=== PATIENT | female | born 1960 | race Caucasian/White ===

== ENCOUNTER 2017-07-03 09:28 | Emergency (ER) | payer OTHER ==
[~2017-07-03] VITALS: Ht 154.9 cm; Wt 56.7 kg
[2017-07-03 09:29] VITALS: BP 160/100
--- NOTE | 2017-07-03 09:40 | NUR ---
56f bib self with productive cough with "brown-yandel" phelgm, fevers, bodyaches, and nausea; Pt sts taking OTC medication with relief but symptoms ongoing. Pt denies any v/d, sob, or chills. Pt is aox4, rr are even and unlabored. Pt positioned to comfort, bed down. Awaiting er md primary eval. Will continue to monitor.
--- NOTE | 2017-07-03 09:45 | NUR ---
er md khan by bedside examining pt
[2017-07-03 10:43] VITALS: BP 179/90
--- NOTE | 2017-07-03 10:43 | NUR ---
Patient discharged with v/s stable. Written and verbal after care instructions given and explained. Patient alert, oriented and verbalized understanding of instructions. Ambulatory with steady gait. All questions addressed prior to discharge. ID band removed. Patient advised to follow up with PMD. Rx of Dextromethorphan Hydrobromide/Promethazine Hydrochloride given. Patient educated on indication of medication including possible reaction and side effects. Opportunity to ask questions provided and answered.
== END 2017-07-03 10:43 | disposition home or self-care (01) ==
LOC: MED 09:28
DX: B34.9 Viral infection, unspecified (principal); I10 Essential (primary) hypertension; E03.9 Hypothyroidism, unspecified; Z88.5 Allergy status to narcotic agent
CPT/HCPCS: 71045; 99283; Q0092

== ENCOUNTER 2019-11-10 20:29 | Inpatient (IN) | payer MEDICAID, OTHER ==
[~2019-11-10] VITALS: Ht 154.9 cm; Wt 56.2 kg
[2019-11-10 20:34] VITALS: BP 163/88
--- NOTE | 2019-11-10 20:42 | NUR ---
PT AMBULATORY TO BED 1
[2019-11-10] MEDS ORDERED: MORPHINE SULFATE 4 MG/ML SYR IVP ONE ×2 (20:50→22:10)
[2019-11-10] MEDS ORDERED: ONDANSETRON 4 MG/2 ML VIAL IVP ONE (20:50)
[2019-11-10 20:59] LABS: APPEARANCE,URINE CLEAR (CLEAR); BILIRUBIN,URINE NEGATIVE (NEGATIVE); BLOOD, URINE NEGATIVE (NEGATIVE); COLOR,URINE YELLOW (YELLOW); LEUKOCYTE ESTERASE ,URINE NEGATIVE (NEGATIVE); NITRITE, URINE NEGATIVE (NEGATIVE); UGLUCOSE NEGATIVE (NEGATIVE)
--- NOTE | 2019-11-10 21:05 | NUR ---
59F PRESENTS TO ED WITH C/O LOWER ABD PAIN X1 DAY, PT REPORTS DRY HEAVING, LAST BM: YESTERDAY AFTER SUPPOSITORY. PT REPORTS BOWEL TO BE HARD AND SMALL SOLID PEBBLE LIKE. BOWELS SOUNDS HYPOACTIVE ON ALL QUADRANTS. NO HEMATOCHEZIA SUBJECTLY STATED PER PT. REPORTS FEELING OF NAUSEA AND VOMITING BUT NO EPISODES PMH: HTN, HYPER THYROID ALLERGIES: CODEINE
--- NOTE | 2019-11-10 21:17 | NUR ---
LABS DRAWN AND COLLECTED AND SENT TO LAB.
--- NOTE | 2019-11-10 21:23 | NUR ---
PT MEDICATED WITH MORPHINE AND ZOFRAN IVP. TOLERATED WELL. RUBENR
[2019-11-10 21:31] LABS: BASOPHILS % (AUTO) 0.6 % (0.0-2.0); EOSINOPHILS % (AUTO) 0.6 % (0.0-4.0); HEMATOCRIT 36.8 % (36-48); HEMOGLOBIN 12.9 g/dL (12.0-16.0); LYMPHOCYTES # (AUTO) 2.6 K/uL (2.5-16.5); LYMPHOCYTES % (AUTO) 29.1 % (20.5-51.1); MEAN CORPUSCULAR HEMOGLOBIN 32 pg (27-31); MEAN CORPUSCULAR HGB CONC 35 g/dL (33-37); MEAN CORPUSCULAR VOLUME 90.5 fL (80-94); MONOCYTES # (AUTO) 0.5 K/uL (0.8-1.0); MONOCYTES % (AUTO) 5.5 % (1.7-9.3); NEUTROPHILS # (AUTO) 5.8 K/uL (1.8-7.7); NEUTROPHILS % (AUTO) 64.2 % (42.2-75.2); PLATELET COUNT (AUTO) 321 K/uL (140-450); RED BLOOD CELL COUNT(AUTO) 4.07 MIL/uL (4.20-5.40); RED CELL DISTRIBUTION WIDTH 12.4 % (11.6-13.7)
[2019-11-10 22:20] LABS: ALBUMIN 4.8 g/dL (3.4-5.0); ANION GAP 14.4 (8-16); CARBON DIOXIDE 25.2 mmol/L (21-32); CREATININE 0.8 mg/dL (0.6-1.3); POTASSIUM 3.6 mmol/L (3.5-5.1); TOTAL BILIRUBIN 0.9 mg/dL (0.0-1.0)
--- NOTE | 2019-11-10 22:24 | NUR ---
PT STATES NON RESOLVING PAIN 03/05. MEDICATED WITH MORPHINE IVP PER MD ORDER. TOLERATED WELL. NADR.
[2019-11-10] MEDS ORDERED: NACL 0.9% 1,000 ML IV ONE (22:40)
[2019-11-10] MEDS ORDERED: LEVO100P IV (23:03)
[2019-11-10] MEDS ORDERED: AMLO5TAB PO (23:03)
[2019-11-10] MEDS ORDERED: MULT1TAB99 PO (23:03)
[2019-11-10] MEDS ORDERED: ASPI81TA3 PO (23:03)
[2019-11-10] MEDS ORDERED: NITR0.4T2 SL (23:03)
[2019-11-10] MEDS ORDERED: LISI-420 PO (23:03)
[2019-11-10] MEDS ORDERED: ASCO500T45 PO (23:03)
[2019-11-10] MEDS ORDERED: OMEP20TC12 PO (23:03)
[2019-11-10] MEDS ORDERED: ATOR20TA PO (23:03)
--- NOTE | 2019-11-10 23:03 | NUR ---
PT TO BE ADMITTED PER MD ORDER. PT NOTIFIED.
[2019-11-10] MEDS ORDERED: DEXT 5% /NACL 0.9% 1,000 ML IV SCH (23:29)
[2019-11-10] MEDS ORDERED: DOCUSATE SODIUM 100 MG GELCAP PO PRN (23:30)
[2019-11-10] MEDS ORDERED: HYDROcodone/APAP 5/325 MG 1 TAB TAB PO PRN (23:30)
[2019-11-10] MEDS ORDERED: BISACODYL 10 MG SUPP RC PRN (23:30)
[2019-11-10] MEDS ORDERED: KETOROLAC 15 MG/ML VIAL IVP PRN (23:30)
[2019-11-10] MEDS ORDERED: ACETAMINOPHEN 325 MG TAB PO PRN (23:30)
[2019-11-11] MEDS ORDERED: SYN.05 PO (00:01)
[2019-11-11 00:10] VITALS: BP 138/77
[2019-11-11 00:10] LABS: AMYLASE 52 U/L (25-115); MAGNESIUM 1.8 mg/dL (1.8-2.4); PHOSPHORUS 3.4 mg/dL (2.5-4.9); THYROID STIMULATING HORMONE 6.62 uIU/mL (0.34-3.74)
[2019-11-11] MEDS ORDERED: BISACODYL 10 MG SUPP RC SCH (00:10)
--- NOTE | 2019-11-11 00:10 | NUR ---
Patient will be admitted to care of DR TIPTON. Admited to [facility]. Will go to [id number]. Belongings list completed. Report to XIAO RESTREPO.
--- NOTE | 2019-11-11 00:10 | NUR ---
PATIENT ARRIVED FROM ER VIA GURNEY, ABLE TO AMBULATE TO [facility] BED WITH ASSISTANCE. NO DISTRESS NOTED. DENIES ANY PAIN. PATIENT COMPLAINS OF NAUSEA/VOMITING, ZOFRAN GIVEN AT ER. AAXO4, CALM, COOPERATIVE, SKIN COLOR APPROPRIATE TO ETHNICITY, WARM TO TOUCH. SKIN INTACT. IV SITE INTACT, PATENT, AND ON SALINE LOCK. ABDOMEN SOFT, NON-DISTENDED. ORIENTED PATIENT TO ROOM AND CALL LIGHT. REVIEWED PLAN OF CARE WITH PATIENT. PATIENT VERBALIZED UNDERSTANDING. SAFETY MEASURES IN PLACE, CALL LIGHT WITHIN REACH. WILL CONTINUE TO MONITOR.
[2019-11-11 00:19] LABS: PROTHROMBIN TIME 10.1 secs (10.8-13.4)
[2019-11-11 00:28] LABS: BARBITURATE, URINE NEGATIVE ng/ml (NEG <=200); BENZODIAZEPINE, URINE NEGATIVE ng/mL (NEG <=200); CANNABINOID, URINE NEGATIVE ng/mL (NEG <=50); COCAINE, URINE NEGATIVE ng/mL (NEG <=300); OPIATE, URINE NEGATIVE ng/mL (NEG <=2000); PHENCYCLIDINE SCREEN,URINE NEGATIVE ng/mL (NEG <=25)
[2019-11-11] MEDS: POTASSIUM CHL 20 MEQ/NACL 0.9% 1,000 ML IV SCH ×3 (00:46→20:25)
[2019-11-11 00:48] LABS: LACTATE DEHYDROGENASE 264 U/L (81-234)
--- NOTE | 2019-11-11 01:00 | NUR ---
MD ORDERED SUPPOSITORY AND ENEMA FOR PATIENT'S CONSTIPATION. PER PATIENT, SHE WANTS TO GO TO SLEEP AND WANTS THE SUPPOSITORY AND ENEMA TO BE DONE IN THE MORNING. WILL CONTINUE TO MONITOR.
[2019-11-11] MEDS: ONDANSETRON 4 MG/2 ML VIAL IM/IVP PRN ×4 (01:20→17:04)
--- NOTE | 2019-11-11 01:30 | NUR ---
PATIENT COMPLAINS OF NAUSEA/VOMITING, ZOFRAN GIVEN AT THIS TIME. WILL CONTINUE TO MONITOR.
--- NOTE | 2019-11-11 03:00 | NUR ---
PATIENT LYING DOWN IN BED SLEEPING, AROUSABLE BY VOICE. CONDITION UNCHANGED. WILL CONTINUE TO MONITOR.
--- NOTE | 2019-11-11 05:30 | NUR ---
PATIENT LYING DOWN IN BED SLEEPING, AROUSABLE BY VOICE. CONDITION UNCHANGED. WILL CONTINUE TO MONITOR.
[2019-11-11] MEDS: LEVOTHYROXINE 0.05 MG TAB PO SCH (05:40)
--- NOTE | 2019-11-11 05:51 | NUR ---
PATIENT SITTING IN BED WITH COMPLAINTS OF NAUSEA. ZOFRAN GIVEN AND OTHER SCHEDULED MEDICATIONS DUE AT THIS TIME. WILL CONTINUE TO MONITOR.
[2019-11-11 06:42] LABS: BASOPHILS # (AUTO) 0.1 K/uL (0.00-0.22); BASOPHILS % (AUTO) 0.5 % (0.0-2.0); HEMATOCRIT 33.5 % (36-48); HEMOGLOBIN 11.6 g/dL (12.0-16.0); LYMPHOCYTES # (AUTO) 1.5 K/uL (2.5-16.5); LYMPHOCYTES % (AUTO) 10.7 % (20.5-51.1); MEAN CORPUSCULAR HEMOGLOBIN 32 pg (27-31); MEAN CORPUSCULAR HGB CONC 35 g/dL (33-37); MEAN CORPUSCULAR VOLUME 91.6 fL (80-94); MONOCYTES # (AUTO) 0.6 K/uL (0.8-1.0); MONOCYTES % (AUTO) 4.2 % (1.7-9.3); NEUTROPHILS # (AUTO) 11.9 K/uL (1.8-7.7); NEUTROPHILS % (AUTO) 84.6 % (42.2-75.2); PLATELET COUNT (AUTO) 285 K/uL (140-450); RED BLOOD CELL COUNT(AUTO) 3.65 MIL/uL (4.20-5.40); RED CELL DISTRIBUTION WIDTH 12.2 % (11.6-13.7); WHITE BLOOD COUNT (AUTO) 14.1 K/uL (4.8-10.8)
[2019-11-11 06:56] LABS: ANION GAP 12.4 (8-16); CARBON DIOXIDE 25.5 mmol/L (21-32); CREATININE 0.6 mg/dL (0.6-1.3); POTASSIUM 3.9 mmol/L (3.5-5.1)
[2019-11-11 07:05] LABS: CHOL/HDL RATIO 1.5 (1-4.5)
--- NOTE | 2019-11-11 07:19 | NUR ---
GAVE REPORT TO AM SHIFT NURSE FOR CONTINUITY OF CARE. PATIENT IN STABLE CONDITION.
--- NOTE | 2019-11-11 07:20 | NUR ---
RECEIVED REPORT FROM HANDBAG STITCHER NURSE, FOR CONTINUITY OF CARE. PT IS LYING IN BED SUPINE, AA&OX4. RESPIRATIONS EVEN AND UNLABORED, BREATHING TO RA. SKIN INTACT, SKIN COLOR APPROPRIATE FOR ETHNICITY. LAC 18G IV PATENT AND INTACT. REVIEWED PLAN OF CARE WITH PT. SAFETY MEASURES IN PLACE; CALL LIGHT WITHIN REACH, BED IN LOW POSITION. WILL CONTINUE TO MONITOR.
[2019-11-11 07:49] LABS: MAGNESIUM 1.7 mg/dL (1.8-2.4); PHOSPHORUS 3.1 mg/dL (2.5-4.9)
[2019-11-11 08:00] VITALS: BP 146/68
[2019-11-11] MEDS: ATORVASTATIN 20 MG TAB PO SCH (09:05)
[2019-11-11] MEDS: LISINOPRIL 20 MG TAB PO SCH (09:05)
[2019-11-11] MEDS: ECOTRIN 81 MG TABEC PO SCH (09:07)
[2019-11-11] MEDS: PANTOPRAZOLE 40 MG TABEC PO SCH (09:07)
[2019-11-11] MEDS: amLODIPine 5 MG TAB PO SCH (09:08)
--- NOTE | 2019-11-11 09:11 | NUR ---
PT COMPLAINS OF NAUSEA AND CONSTIPATION. PRN IVP ZOFRAN, STOOL SOFTENER AND SUPPOSITORY GIVEN. PT'S SCHEDULED MEDS ALSO GIVEN; MEDICATION EDUCATION PROVIDED. BP: 146/68, PULSE: 74. PT TOLERATED PO MEDS WELL. NO ACUTE DISTRESS NOTED. WILL CONTINUE TO MONITOR.
--- NOTE | 2019-11-11 09:41 | NUR ---
PATIENT HAS BEEN SCREENED AND CATEGORIZED HIGH NUTRITION RISK. PATIENT WILL BE SEEN WITHIN 1-2 DAYS OF ADMISSION. 11/11/19-11/12/[address]
--- NOTE | 2019-11-11 10:20 | NUR ---
HOUSEHOLD CHORES NOTE: Basic Screen: Yes High Risk DC Screen [place]: KIM SMILEY Nunda Relationship: Pre-Admission Living Arrangements: Lives with Other Prior ADL Independent Current Home Health Name/Tel: N/A Current DME/02 Name/Tel: N/A Current Hospice Name/Tel: N/A Current Dialysis Name/Tel: N/A Healthcare Decision Maker: Patient Advance Directive No Physician Orders for Life Sustaining Treatment Form No Discipline: Case Mgt/Social Svcs Tentative Discharge Plan/Destination: No Needs Identified Will require assistance post discharge: No Referred to Senior Embedded Software Engineer: No Tentative Discharge Plan Summary: PATIENT IS A 59-YEAR-OLD FEMALE ADMITTED FOR HYPONATREMIA. PATIENT HAS PMHX OF HYPERTENSION, HYPOTHYROIDISM, AND DYSLIPEMIA. PATIENT WAS ADMITTED FROM HOME WHERE SHE LIVES WITH HER . SW SPOKE WITH PATIENT TO VERIFY DEMOGRAPHICS. PER PATIENT, SHE IS INDEPENDENT WITH ALL ADLS, AND REPORTS NO HISTORY OF MENTAL HEALTH OR SUBSTANCE ABUSE. TENTATIVE DISCHARGE PLAN IS FOR PATIENT TO RETURN HOME. NO FURTHER NEEDS IDENTIFIED. Signature: RADHA MALDONADO Date: November 11, 2019 Time: 10:19
[2019-11-11 13:36] LABS: ANION GAP 14.4 (8-16); CARBON DIOXIDE 24.5 mmol/L (21-32); CREATININE 0.9 mg/dL (0.6-1.3); POTASSIUM 3.9 mmol/L (3.5-5.1)
[2019-11-11 16:00] VITALS: BP 145/76
[2019-11-11] MEDS ORDERED: MAGNESIUM OXIDE 400 MG TAB PO SCH (17:00)
--- NOTE | 2019-11-11 17:11 | NUR ---
PT COMPLAINS OF NAUSEA, PRN IVP ZOFRAN GIVEN. PO MAGNESIUM ALSO ADMINISTERED. WARM BLANKET AND WARM WATER ALSO GIVEN. NO ACUTE DISTRESS NOTED. WILL CONTINUE TO MONITOR.
--- NOTE | 2019-11-11 19:14 | NUR ---
GAVE BEDSIDE REPORT TO DRY CLEANER NURSE FOR CONTINUITY OF CARE. PT IS IN STABLE CONDITION.
--- NOTE | 2019-11-11 19:15 | NUR ---
RECEIVED REPORT FROM DAY SHIFT NURSE. PATIENT AWAKE, LYING ON BED, ALERT, ORIENTED X 4. ON ROOM AIR. RESPIRATIONS EVEN AND UNLABORED. SKIN INTACT. WITH IV SITE PATENT AND INTACT WITH IVF. PATIENT IS AMBULATORY. NO PAIN/DISTRESS NOTED. REVIEWED PLAN OF CARE TO PATIENT. VERBALIZED UNDERSTANDING. SAFETY MEASURES IN PLACE. CALL LIGHT WITHIN REACH. WILL CONTINUE TO MONITOR PATIENT.
--- NOTE | 2019-11-11 23:41 | NUR ---
PATIENT IS SLEEPING COMFORTABLY. ON ROOM AIR. RESPIRATIONS EVEN AND UNLABORED. WILL CONTINUE TO MONITOR PATIENT.
[2019-11-12] VITALS: BP 112/53
[2019-11-12] MEDS: POTASSIUM CHL 20 MEQ/NACL 0.9% 1,000 ML IV SCH ×3 (01:12→22:20)
--- NOTE | 2019-11-12 01:21 | NUR ---
PATIENT STILL SLEEPING COMFORTABLY. ON ROOM AIR. RESPIRATIONS EVEN AND UNLABORED. WILL CONTINUE TO MONITOR PATIENT.
--- NOTE | 2019-11-12 03:34 | NUR ---
CHECKED PATIENT AND IS SLEEPING COMFORTABLY. ON ROOM AIR, RESPIRATIONS EVEN AND UNLABORED. WILL CONTINUE TO MONITOR PATIENT.
--- NOTE | 2019-11-12 05:14 | NUR ---
PATIENT STILL SLEEPING COMFORTABLY. PATIENT NOT IN DISTRESS. RESPIRATIONS EVEN AND UNLABORED. WILL CONTINUE TO MONITOR PATIENT.
[2019-11-12] MEDS: LEVOTHYROXINE 0.05 MG TAB PO SCH (05:54)
--- NOTE | 2019-11-12 05:56 | NUR ---
PATIENT NOW AWAKE. PATIENT STILL CONSTIPATED. PT ASKING FOR SUPPOSITORY. DULCOLAX GIVEN PER MD ORDER. WILL CONTINUE TO MONITOR PATIENT.
[2019-11-12 06:45] LABS: BASOPHILS % (AUTO) 0.8 % (0.0-2.0); EOSINOPHILS # (AUTO) 0.1 K/uL (0-0.4); EOSINOPHILS % (AUTO) 1.3 % (0.0-4.0); HEMATOCRIT 34.7 % (36-48); LYMPHOCYTES # (AUTO) 1.6 K/uL (2.5-16.5); LYMPHOCYTES % (AUTO) 27.3 % (20.5-51.1); MEAN CORPUSCULAR HEMOGLOBIN 32 pg (27-31); MEAN CORPUSCULAR HGB CONC 35 g/dL (33-37); MEAN CORPUSCULAR VOLUME 91.9 fL (80-94); MONOCYTES # (AUTO) 0.4 K/uL (0.8-1.0); MONOCYTES % (AUTO) 7.2 % (1.7-9.3); NEUTROPHILS # (AUTO) 3.7 K/uL (1.8-7.7); NEUTROPHILS % (AUTO) 63.4 % (42.2-75.2); PLATELET COUNT (AUTO) 286 K/uL (140-450); RED BLOOD CELL COUNT(AUTO) 3.77 MIL/uL (4.20-5.40); RED CELL DISTRIBUTION WIDTH 12.3 % (11.6-13.7); WHITE BLOOD COUNT (AUTO) 5.8 K/uL (4.8-10.8)
--- NOTE | 2019-11-12 07:00 | NUR ---
RECEIVED REPORT FROM WHEEL FITTER RNLAMBERT. PATIENT AWAKE, ABLE TO AMBULATE. ALERT, ORIENTED X 4. ON ROOM AIR. RESPIRATIONS EVEN AND UNLABORED. SKIN INTACT. WITH IV SITE PATENT AND INTACT WITH IVF. NO PAIN/DISTRESS NOTED. REVIEWED PLAN OF CARE TO PATIENT. VERBALIZED UNDERSTANDING. SAFETY MEASURES IN PLACE. CALL LIGHT WITHIN REACH. WILL CONTINUE TO MONITOR PATIENT.
--- NOTE | 2019-11-12 07:18 | NUR ---
PATIENT IN STABLE CONDITION. ENDORSED PATIENT TO DAY SHIFT NURSE FOR CONTINUITY OF CARE.
[2019-11-12 08:00] VITALS: BP 148/88
--- NOTE | 2019-11-12 08:00 | NUR ---
COLLECTED OCCULT BLOOD, BM CONTAINS SMALL AMOUNT OF STOOL AND IS HARD. NO SIGNS OF DISTRESS. WILL CONTINUE TO MONITOR.
[2019-11-12] MEDS: ECOTRIN 81 MG TABEC PO SCH (08:19)
--- NOTE | 2019-11-12 08:20 | NUR ---
MORNING MEDICATIONS GIVEN. NO SIGNS OF DISTRESS NOTED. BP 147/89, HR 82. WILL CONTINUE TO MONITOR.
[2019-11-12] MEDS: PANTOPRAZOLE 40 MG TABEC PO SCH (08:25)
[2019-11-12] MEDS: ATORVASTATIN 20 MG TAB PO SCH (08:25)
[2019-11-12] MEDS: amLODIPine 5 MG TAB PO SCH ×2 (08:25→09:20)
[2019-11-12] MEDS: LISINOPRIL 20 MG TAB PO SCH (08:26)
--- NOTE | 2019-11-12 09:30 | NUR ---
IVF CHANGED. NO SIGNS OF DISTRESS NOTED. PT. IS ASLEEP AND IN BED. WILL CONTINUE TO MONITOR.
--- NOTE | 2019-11-12 10:15 | NUR ---
DC PLANNIN YRS OLD FEMALE PATIENT WAS ADMITTED FROM HOME WITH A DX OF HYPONATREMIA, INTRACTABLE ABDOMINAL PAIN. PT HAS A HX OF HTN, HYPOTHYROIDISM AND DYSLIPIDEMIA. CT ABD/PELVIS SHOWED MODERATED VOLUME OF STOOL AND GAS THROUGH OUT THE COLON . ADMINISTER IV ZOFRAN , CONTINUE HOME MEDS CONSULT WITH ROTARY FILTER OPERATOR DR ELENA. DC PLAN TO GO HOME WHEN STABLE . CM TO FOLLOW.
[2019-11-12 10:29] LABS: ANION GAP 11.4 (8-16); CARBON DIOXIDE 24.1 mmol/L (21-32); CREATININE 0.8 mg/dL (0.6-1.3); POTASSIUM 4.5 mmol/L (3.5-5.1)
--- NOTE | 2019-11-12 15:52 | NUR ---
11/12/19 RD INITIAL ASSESSMENT COMPLETED PLEASE REFER TO NUTRITION ASSESSMENT UNDER CARE ACTIVITY FOR ESTIMATED NUTRITIONAL NEEDS. 1. RECOMMEND [facility] [address] GM DIET TOL[address]ATED 2. RD PROVIDED NUTRITION EDUCATION FOR DIABETES 3. RD TO FOLLOW-UP 3-5 DAYS, MODERATE RISK MARYLIN REARDON RD
[2019-11-12 16:00] VITALS: BP 120/80
--- NOTE | 2019-11-12 16:15 | NUR ---
V/S TAKEN AND IS WNL. PT. IS AWAKE AND IN BED. NO SIGNS OF DISTRESS NOTED. WILL CONTINUE TO MONITOR.
--- NOTE | 2019-11-12 19:00 | NUR ---
ENDORSED TO RN HEDIS RNJAMAR, FOR CONTINUITY OF CARE.
--- NOTE | 2019-11-12 19:01 | NUR ---
RECD. RESTING IN BED, AWAKE, A/OX4. RESPIRATION EVEN AND UNLABORED. IV OF D5 NS +20 MEQ KCL INFUSING AT 100 ML/HR, LEFT AC G18. AMBULATORY TO THE BR. PLAN OF CARE FOR THE SHIFT DISCUSSED.VERBALIZED UNDERSTANDING. DENIES PAIN 0/10.
--- NOTE | 2019-11-12 19:02 | NUR ---
Patient's Plan of Care was discussed and reviewed with OPERATING ROOM TECHNICIAN: JAMAR. WILL ROUND FREQUENTLY.
--- NOTE | 2019-11-12 21:00 | NUR ---
RESTING IN BED, WATCHING TV. NO COMPLAINT OF ABDOMINAL PAIN 0/10.
[2019-11-13] VITALS: BP 133/82
[2019-11-13] MEDS ORDERED: CALCIUM CARBONATE 500 MG TAB.CHEW PO PRN (02:30)
--- NOTE | 2019-11-13 02:45 | NUR ---
WITH HYPERACIDITY, MEDICATED WITH TUMS PER MD ORDER.
--- NOTE | 2019-11-13 03:45 | NUR ---
AWAKE IN BED, STATED FEELING BETTER.
[2019-11-13 06:31] LABS: ANION GAP 9.9 (8-16); CARBON DIOXIDE 29.4 mmol/L (21-32); CREATININE 0.7 mg/dL (0.6-1.3); POTASSIUM 4.3 mmol/L (3.5-5.1)
[2019-11-13] MEDS: LEVOTHYROXINE 0.05 MG TAB PO SCH (06:35)
[2019-11-13 06:56] LABS: BASOPHILS # (AUTO) 0.1 K/uL (0.00-0.22); BASOPHILS % (AUTO) 0.6 % (0.0-2.0); EOSINOPHILS # (AUTO) 0.1 K/uL (0-0.4); EOSINOPHILS % (AUTO) 1.6 % (0.0-4.0); HEMATOCRIT 34.9 % (36-48); HEMOGLOBIN 12.1 g/dL (12.0-16.0); LYMPHOCYTES # (AUTO) 2.3 K/uL (2.5-16.5); LYMPHOCYTES % (AUTO) 27.9 % (20.5-51.1); MEAN CORPUSCULAR HEMOGLOBIN 32 pg (27-31); MEAN CORPUSCULAR HGB CONC 35 g/dL (33-37); MEAN CORPUSCULAR VOLUME 92.8 fL (80-94); MONOCYTES # (AUTO) 0.4 K/uL (0.8-1.0); NEUTROPHILS # (AUTO) 5.4 K/uL (1.8-7.7); NEUTROPHILS % (AUTO) 64.9 % (42.2-75.2); PLATELET COUNT (AUTO) 289 K/uL (140-450); RED BLOOD CELL COUNT(AUTO) 3.77 MIL/uL (4.20-5.40); RED CELL DISTRIBUTION WIDTH 12.5 % (11.6-13.7); WHITE BLOOD COUNT (AUTO) 8.3 K/uL (4.8-10.8)
--- NOTE | 2019-11-13 07:00 | NUR ---
RECEIVED REPORT FROM RES HABILITATION ASSISTANT RNJAMAR, FOR CONTINUITY OF CARE. PATIENT AWAKE, ABLE TO AMBULATE. ALERT, ORIENTED X 4. ON ROOM AIR. RESPIRATIONS EVEN AND UNLABORED. SKIN INTACT. WITH IV SITE PATENT AND INTACT WITH IVF. NO PAIN/DISTRESS NOTED. REVIEWED PLAN OF CARE TO PATIENT. VERBALIZED UNDERSTANDING. SAFETY MEASURES IN PLACE. CALL LIGHT WITHIN REACH. WILL CONTINUE TO MONITOR PATIENT.
--- NOTE | 2019-11-13 07:10 | NUR ---
CONDITION REMAIN STABLE. ENDORSED TO AM SHIFT NURSE FOR CONTINUITY OF CARE.
[2019-11-13 08:00] VITALS: BP 160/93
[2019-11-13] MEDS: PANTOPRAZOLE 40 MG TABEC PO SCH (08:30)
[2019-11-13] MEDS: LISINOPRIL 20 MG TAB PO SCH (08:31)
[2019-11-13] MEDS: ATORVASTATIN 20 MG TAB PO SCH (08:31)
[2019-11-13] MEDS: ECOTRIN 81 MG TABEC PO SCH (08:31)
[2019-11-13] MEDS: amLODIPine 5 MG TAB PO SCH (08:32)
[2019-11-13] MEDS: POTASSIUM CHL 20 MEQ/NACL 0.9% 1,000 ML IV SCH (08:37)
[2019-11-13] MEDS ORDERED: AMLO10TA PO (10:43)
[2019-11-13] MEDS ORDERED: LISI-420 PO (10:43)
[2019-11-13] MEDS ORDERED: DOCU-299 PO (10:43)
[2019-11-13] MEDS ORDERED: LORazepam 2 MG/ML VIAL IM/IVP PRN (11:40)
[2019-11-13] MEDS ORDERED: hydrALAZINE 20 MG/ML VIAL IM SCH (12:00)
[2019-11-13] MEDS ORDERED: hydrALAZINE 20 MG/ML VIAL IVP SCH (12:00)
--- NOTE | 2019-11-13 12:00 | NUR ---
V/S CHECKED FOR DISCHARGE. BP 174/104, HR 101, TEMP 98.6, O2 STAT 99%, PT VERBALIZES NO PAIN BUT EXPRESSES SEVERE ANXIETY. WILL INFORM .
--- NOTE | 2019-11-13 12:10 | NUR ---
SPOKE TO DR. LOPEZ, NEW ORDERS FOR IM ATIVAN AND HYDRALAZINE GIVEN. REASSESSMENT TO BE DONE AFTER AN HOUR FOR DISCHARGE. WILL FOLLOW THROUGH.
--- NOTE | 2019-11-13 12:20 | NUR ---
DR. LOPEZ BY THE BEDSIDE TO REASSURE PT. PT. COMPLIES ABOUT MEDICATION. WILL CONTINUE TO MONITOR.
--- NOTE | 2019-11-13 13:20 | NUR ---
V/S RECHECKED WITH BP 148/72, HR 74. NO SIGNS OF DISTRESS NOTED. PT. VERBALIZES WANTING TO GO HOME. DR. LOPEZ IS AWARE. WILL FOLLOW THROUGH WITH DISCHARGE.
[2019-11-13 13:34] VITALS: BP 148/78
--- NOTE | 2019-11-13 13:55 | NUR ---
PT. IS DISCHARGED TO HOME WITH . DISCHARGE INSTRUCTIONS AND TEACHINGS GIVEN. PT. VERBALIZES UNDERSTANDING. DISCHARGED PAPERWORKS SIGNED. ARMBANDS AND IV SITE REMOVED. NO SIGNS OF DISTRESS NOTED. PT. VERBALIZES NO PAIN. PT. IS ESCORTED OUT TO LOBBY.
== END 2019-11-13 13:55 | disposition home or self-care (01) | DRG 640 ==
LOC: MED 20:29 → MTU 23:29
PROVIDERS: ADMIT General Practice; ATTEND General Practice
DX: E87.1 Hypo-osmolality and hyponatremia (principal); G93.41 Metabolic encephalopathy; D68.59 Other primary thrombophilia; E87.8 Other disorders of electrolyte and fluid balance, not elsewhere classified; I10 Essential (primary) hypertension; K21.9 Gastro-esophageal reflux disease without esophagitis; K59.00 Constipation, unspecified; E83.42 Hypomagnesemia; E03.9 Hypothyroidism, unspecified; E86.1 Hypovolemia; T47.3X5A Adverse effect of saline and osmotic laxatives, initial encounter; E78.5 Hyperlipidemia, unspecified; Z88.5 Allergy status to narcotic agent; Z88.8 Allergy status to other drugs, medicaments and biological substances; Z79.899 Other long term (current) drug therapy; Z79.82 Long term (current) use of aspirin; Z90.49 Acquired absence of other specified parts of digestive tract; Z90.710 Acquired absence of both cervix and uterus; Z82.49 Family history of ischemic heart disease and other diseases of the circulatory system; Y92.89 Other specified places as the place of occurrence of the external cause
CPT/HCPCS: 36415; 71045; 80048; 80053; 80305; 81003; 81025; 82140; 82150; 82272; 83036; 83615; 83690; 83735; 83880; 83930; 83935; 84100; 84134; 84300; 84443; 84484; 85025; 85610; 85730; 87081; 96374; 96375; 96376; 97161-GP; 99285; G0482; J0360; J2060; J2270; J2405; J7030; J7042; Q0092

== ENCOUNTER 2019-11-16 14:21 | Emergency (ER) | payer OTHER ==
[~2019-11-16] VITALS: Ht 152.4 cm; Wt 53.2 kg
[~2019-11-16 14:21] MED LIST: AMLO10TA PO; ASCO500T95 PO; ASPI81TA3 PO; ATOR20TA PO; DOCU-299 PO; LISI-420 PO; MULT1TAB99 PO; NITR0.4T2 SL; OMEP20TC12 PO; SYN.05 PO
[2019-11-16 14:40] VITALS: BP 120/86
--- NOTE | 2019-11-16 14:50 | NUR ---
PT AMB TO BED 12.
--- NOTE | 2019-11-16 15:18 | NUR ---
PT C/O ANXIETY, TIREDNESS, CHANGE IN APPETITE, AND HIGH BLOOD PRESSURE. PT STATES THAT SHE HAS BEEN FEELING ANXIOUS DURING THE WEEK. PT CAME TO THE ER LAST Monday11/13/19. PMHX: HTN, HYPERTHYROIDISM. ALLERGIES: POLLEN, CODEINE
--- NOTE | 2019-11-16 15:18 | NUR ---
DR PONCE AT BEDSIDE.
[2019-11-16 15:31] VITALS: BP 164/72
--- NOTE | 2019-11-16 15:32 | NUR ---
Patient discharged with v/s stable 164/72. PT DENIES DIZZINESS OR HEADACHE AT THIS TIME. MD MADE AWARE. Written and verbal after care instructions given and explained. Patient verbalized understanding. Ambulatory with steady gait. All questions addressed prior to discharge. Advised to follow up with PMD.
== END 2019-11-16 15:32 | disposition home or self-care (01) ==
LOC: MED 14:21
DX: F41.9 Anxiety disorder, unspecified (principal); K21.9 Gastro-esophageal reflux disease without esophagitis; I10 Essential (primary) hypertension; E05.90 Thyrotoxicosis, unspecified without thyrotoxic crisis or storm; Z79.82 Long term (current) use of aspirin; Z79.899 Other long term (current) drug therapy; Z88.5 Allergy status to narcotic agent
CPT/HCPCS: 99281